=== PATIENT | male | born 1980 | race Hispanic/Latino ===

== ENCOUNTER 2018-01-17 21:46 | Emergency (ER) | payer BC, OTHER ==
[2018-01-17] MEDS ORDERED: traMADol HCl 50 MG TAB ONE (22:03)
[2018-01-17] MEDS ORDERED: Sulfameth/Trimethoprim DS 800-160mg TAB ONE (22:04)
== END 2018-01-17 22:25 | disposition home or self-care (01) ==
LOC: SCSER 21:46
DX: L02.811 Cutaneous abscess of head [any part, except face] (principal); J45.909 Unspecified asthma, uncomplicated
CPT/HCPCS: 69000

== ENCOUNTER 2019-05-22 21:12 | Inpatient (IN) | payer BC ==
[~2019-05-22 21:12] MED LIST: ISOVUE-370 76%-LOCM 1 ML ONE
--- NOTE | 2019-05-22 21:47 | RAD ---
EXAM: Single view of the chest HISTORY: Chest pain COMPARISON: 01/22/2009 FINDINGS: Single view of the chest shows a normal sized cardiomediastinal silhouette. There is no carole dence of consolidation, mass, or pleural effusion. The bones are unremarkable. IMPRESSION: No evidence of acute cardiopulmonary disease
[2019-05-22 22:33] LABS: Hemoglobin 15.3 g/dL (14.0-18.0); Lymphocytes 8 % (21-51); MDiff Complete? YES; Mean Corpuscular HGB CONC 34.4 g/dL (32.0-36.0); Mean Corpuscular Hemoglobin 32.5 pg (27.0-31.0); Mean Corpuscular Volume 94.5 fL (78.0-98.0); Mean Platelet Volume 10.3 fL (7.4-10.4); Monocytes 2 % (0-10); Neutrophil 90 % (42-75); Platelet Count 273 thou/uL (130-400); Platelet Morphology Comment Appears Adequate; RBC Distribution Width 12.3 % (11.5-14.5)
[2019-05-22 22:42] LABS: White Blood Cell (WBC) Count 9.9 thou/uL (4.8-10.8)
[2019-05-22] MEDS ORDERED: Morphine 4 MG/ML VIAL ONE (23:00)
[2019-05-22] MEDS ORDERED: Ketorolac Tromethamine 30 MG/ML VIAL ONE (23:02)
[2019-05-22] MEDS ORDERED: Ondansetron PF 4 MG/2 ML Vial ONE (23:11)
[2019-05-23] MEDS ORDERED: Morphine 4 MG/ML VIAL ONE ×4 (00:13→08:01)
[2019-05-23] MEDS ORDERED: Morphine 2 MG/ML SYRINGE ONE (01:56)
[2019-05-23] MEDS ORDERED: Acetaminophen 325 MG TAB PO PRN (04:47)
[2019-05-23] MEDS ORDERED: Ondansetron ODT 4 MG TAB SL PRN (04:47)
[2019-05-23] MEDS ORDERED: Ondansetron PF 4 MG/2 ML Vial IVP PRN (04:47)
[2019-05-23] MEDS: Morphine 2 MG/ML SYRINGE SLOW IVP PRN ×2 (05:08→08:04)
[2019-05-23] MEDS: Sodium Chloride 0.45% 1,000 ML IV SCH ×4 (05:09→15:31)
[2019-05-23] MEDS ORDERED: Ondansetron PF 4 MG/2 ML Vial ONE (07:03)
--- NOTE | 2019-05-23 07:58 | CT ---
PRELIMINARY REPORT/[facility]/EMERGENCY AFTER HOURS PROCEDURE: Addendum created by Jared Jeffers MD on 05/23/2019 2:40 AM Central Time ([place] & [place]) THIS REPORT CONTAINS FINDINGS THAT MAY BE CRITICAL TO PATIENT CARE. The findings were verbally communicated via telephone conference with Dr Pemberton at 2:31 AM CDT on 05/23/2019. The findings were acknowledged and understood. Initial Report created on 05/23/2019 2:39 AM Central Time ([place] & [place]) EXAM: CT Abdomen and Pelvis With Contrast EXAM DATE/TIME: 05/23/2019 12:34 AM CLINICAL HISTORY: 38 years old, male; Abdominal pain; Patient HX: Er 1. PT CO epigastric and cp. TECHNIQUE: Imaging protocol: Axial computed tomography images of the abdomen and pelvis with intravenous contrast. COMPARISON: No relevant prior studies available. FINDINGS: Liver: No acute findings. Fatty liver. No mass. Gallbladder and bile ducts: Prior cholecystectomy. No calcified stones. No biliary dilation. Pancreas: Possible mild fat stranding/edema in the pancreaticoduodenal region. No mass. No ductal dilation. No mass. No ductal dilation. Spleen: No acute findings. No mass. Adrenals: No acute findings. No mass. Kidneys and ureters: Multiple left renal calculi, largest in the lower pole. Left upper pole caliecta sis. Left hydroureter. No evidence of ureteral calculi. Left renal lower pole 3 cm increased attenuation mass. Small right renal calculi. No right hydronephrosis. Stomach and bowel: No obstruction. Appendix: No evidence of appendicitis. Intraperitoneal space: No free air. No significant fluid collection. Vasculature: No acute findings. No abdominal aortic aneurysm. Lymph nodes: No significant lymphadenopathy. Bladder: No acute findings. No evidence of bladder calculi. Reproductive: No acute findings. Bones/joints: No acute fracture. Soft tissues: No acute findings. IMPRESSION: Possible mild stranding/edema in the pancreaticoduodenal region which could be inflammatory; recommend clinical/lab correlation. Left renal suspicious mass; recommend further evaluation with dedicated renal protocol imaging. Bilateral nonobstructing nephrolithiasis. Left hydroureter and caliectasis. Thank you for allowing us to participate in the care of your patient. Dictated and Authenticated by: Jared Jeffers MD 05/23/2019 2:39 AM Central Time ([place] & [place]) FINAL REPORT CT Abdomen Pelvis W Con History: Abdominal pain Comparison: None. Findings: Diffuse hepatic steatosis. Multiple large calculi within the dilated inferior left renal ca lyx. Complex mass inferior pole left kidney. Retained bilateral renal lobulation. Multiple dilated calyces throughout the left renal collect ing system. Scarring superior pole left kidney. Duplicated left renal collecting system with dilatation of the superior moiety ureter at the level of the pelvic brim. Impression: 1. Duplicated left renal collecting system with scarring of the superior moiety and ureteral dilatati on at the level of the pelvic brim. Scarring likely sequela of chronic obstruction. 2. Numerous calculi throughout the inferior left renal collecting system as well as punctate calculi in the left interpolar and right inferior renal collecting system. 3. Mild inflammatory stranding at the pancreatic duodenal groove suggesting groove pancreatitis. 4. Possible mass left kidney. Dedicated renal protocol MRI recommended. Transcribed Date/Time: 05/23/2019 8:36 AM
--- NOTE | 2019-05-23 08:39 | CT ---
PRELIMINARY REPORT/[facility]/EMERGENCY AFTER HOURS PROCEDURE: EXAM: CT Angiography Chest With Contrast EXAM DATE/TIME: 05/23/2019 12:34 AM CLINICAL HISTORY: 38 years old, male; Patient HX: Eval for possible pe; Er 1. PT CO epigastric and chest pain. TECHNIQUE: Imaging protocol: Axial computed tomographic angiography images of the chest with intravenous contras t using CT angiography protocol. 3D rendering: MIP reconstructed images were created and reviewed. COMPARISON: No relevant prior studies available. FINDINGS: Pulmonary arteries: No acute findings. No evidence of pulmonary embolism. Aorta: No acute findings. No aortic aneurysm or dissection. Lungs: No acute findings. No consolidation. No masses. Pleural space: No pneumothorax. No pleural effusion. Heart: No cardiomegaly. No pericardial effusion. Lymph nodes: No significant adenopathy. Bones/joints: No acute fracture. Soft tissues: No acute findings. IMPRESSION: No acute findings. Thank you for allowing us to participate in the care of your patient. Dictated and Authenticated by: Jared Jeffers MD 05/23/2019 2:21 AM Central Time ([place] & [place]) FINAL REPORT CT ANGIOGRAM CHEST WITH 3D RENDERING: EMERGENT AFTER HOURS EXAM: DATE: 12:36 a.m. TIME: 05/23/2019. No convincing CT evidence for acute pulmonary embolism. Hepatomegaly with marked fatty change. This report is in agreement with the preliminary report. POS: [facility]
[2019-05-23] MEDS ORDERED: HumaLOG 300 UNITS/3 ML VIAL SC PRN ×2 (10:03)
[2019-05-23] MEDS ORDERED: Guaifenesin DM 100-10/5 ML UDCUP PO PRN (10:03)
[2019-05-23] MEDS ORDERED: Dextrose 5% in Water 1,000 ML IV PRN (10:03)
[2019-05-23] MEDS ORDERED: Morphine 4 MG/ML VIAL SLOW IVP PRN (10:03)
[2019-05-23] MEDS ORDERED: Senokot S 8.6-50 MG TAB PO PRN (10:03)
[2019-05-23] MEDS ORDERED: Dextrose 50% Abboject 50 ML SYRINGE SLOW IVP PRN (10:03)
[2019-05-23] MEDS ORDERED: rOPINIRole HCl 1 MG TAB PO PRN (10:03)
[2019-05-23] MEDS ORDERED: Bisacodyl 10 MG SUPP PR PRN (10:03)
[2019-05-23] MEDS ORDERED: Sodium Chloride 0.45% 1,000 ML IV SCH ×2 (10:15→16:30)
[2019-05-23] MEDS: Ketorolac Tromethamine 30 MG/ML VIAL IVP PRN ×2 (11:10→18:03)
[2019-05-23] MEDS: Ondansetron PF 4 MG/2 ML Vial IVP PRN ×2 (11:16→22:22)
--- NOTE | 2019-05-23 14:18 | HP ---
REASON FOR ADMISSION: Acute pancreatitis. HISTORY OF PRESENTING ILLNESS: The patient gives history of left upper quadrant pain which started on Wednesday morning. This was radiating up into his chest. The pain was constant pain around 5 to 6/10 in intensity. No nausea or vomiting. The patient in fact states he ate a lot of pasta yesterday. He also admits to drinking at least 24 beer cans on each day of the weekend. No complaints of prior abdominal pain in the past. No complaints of palpitations, PND, or orthopnea. PAST MEDICAL AND SURGICAL HISTORY: Diabetes mellitus type 2, hypertension, history of cholecystectomy, prior history of lithotripsy done when he was 20 years of age and was told that he has chronic changes in his kidney. He does not remember his urologist. CURRENT MEDICATIONS: 1. Metformin 1000 mg extended release twice daily. 2. Glipizide extended release 5 mg daily. 3. Losartan 50 mg daily. ALLERGIES: NO KNOWN DRUG ALLERGIES. PERSONAL HISTORY: Drinks 24 cans of beer on the weekends. Does not abuse drugs or smoke. FAMILY HISTORY: Mother has history of heart failure, hypertension, and diabetes. Father had history of PE. CODE STATUS: Full. REVIEW OF SYSTEMS: CONSTITUTIONAL: Negative for weight loss or gain, ability to conduct usual activities. SKIN: Negative for rash, itching. EYES: Negative for double vision, pain. ENT/MOUTH: Negative for nose bleeding, neck stiffness, pain, tenderness. CARDIOVASCULAR: Negative for palpitations, dyspnea on exertion, orthopnea. RESPIRATORY: Negative for shortness of breath, wheezing, cough, hemoptysis, fever or night sweats. GASTROINTESTINAL: Negative for poor appetite, abdominal pain, heartburn, nausea , vomiting, constipation, or diarrhea. GENITOURINARY: Negative for urgency, frequency, dysuria, nocturia. MUSCULOSKELETAL: Negative for pain, swelling. NEUROLOGIC/PSYCHIATRIC: Negative for anxiety, depression. ALLERGY/IMMUNOLOGIC: Negative for skin rash, bleeding tendency. PHYSICAL EXAMINATION: GENERAL: The patient is a 38-year-old male, who is currently not in any acute distress. VITAL SIGNS: Blood pressure 136/86, pulse 90 per minute, respiratory rate 16 per minute, temperature 99.4 degrees Fahrenheit, and saturating 94% on room air. NECK: Supple. No elevated JVD. HEENT: Eyes; extraocular muscles intact. Pupils reacting to light. Oral cavity, mucous membranes are dry. No exudates or congestion. CARDIOVASCULAR: S1 and S2 heard, regular rhythm. RESPIRATORY: Air entry 1+ bilateral. No rales or rhonchi. ABDOMEN: There is tenderness in the left upper quadrant. No rigidity or guarding. Bowel sounds are heard. EXTREMITIES: No peripheral edema or calf tenderness. VASCULAR SYSTEM: Peripheral pulses 2+ bilateral. No ischemic ulcerations or gangrene. CENTRAL NERVOUS SYSTEM: No gross focal deficits noted. The patient is alert, awake, oriented well. PSYCHIATRIC: The patient's mood is euthymic. No hallucinations or delusions. PROCEDURES DONE: Chest x-ray done shows no acute cardiopulmonary process. CT angio chest done shows no acute findings. No evidence of PE. CT of the abdomen and pelvis with contrast done shows mild stranding/edema of the pancreaticoduodenal region. Left renal suspicious mass, bilateral nonobstructing nephrolithiasis, left hydroureter and caliectasis. H and H 15 and 44, platelet count 273, white count of 9.9 with 90% neutrophils. Lipase is 229. His comprehensive metabolic panel is pending at present. It is unclear this blood work was drawn at 11:40 p.m. yesterday and it is still not resulted. We will order another comprehensive metabolic panel stat. CLINICAL IMPRESSION AND PLAN: The patient will be admitted to medical floor for acute pancreatitis, likely alcohol induced. He also has findings of left hydroureter with prior history of stent and lithotripsy when he was 20 years of age. He was also told that one of his kidneys is enlarged and will be so, but it is unclear the size is same or bigger and there is also suspicion for a mass in the left kidney. He will be on half normal saline at 150 mL per hour, morphine, Toradol p.r.n. for pain. We will obtain a triglyceride level stat. We will continue his glyburide as before. He will be on clear liquid diet for now. We will obtain consultation with Dr. Mando Vega for gastroenterology and Dr. Wade for Urology. Addendum: patients triglyceride levels are around 2500, d/w and , will move patient to ccu and start him on iv insulin at 3u/hr regular insulin with d5w buffer and 1/2 ns for volume resuscitation. If his fingerstick glucose goes beyond 350mg/dl then his d5w drip will be turned off and 1/2 ns drip volume will be increased. Add fish oil, tricor and crestor with one doses today. Job ID: [id number] [facility]
[2019-05-23 14:39] LABS: Carbon Dioxide 22 mmol/L (22-29); Chloride 109 mmol/L (98-107); Potassium 4.4 mmol/L (3.5-5.1); Sodium 142 mmol/L (136-145)
[2019-05-23 14:40] LABS: Anion Gap 15 mmol/L (10-20); BUN (Urea Nitrogen) 11 mg/dL (8.9-20.6); Calc. Creatinine Clearance 228 mL/min (70-130); Estimated GFR-MDRD Greater than 90; Glucose 262 mg/dL (70-105)
[2019-05-23 14:42] LABS: AST (SGOT) 38 U/L (5-34); Albumin 3.6 g/dL (3.5-5.0); Alkaline Phosphatase 107 U/L (40-150); Bilirubin, Total 0.5 mg/dL (0.2-1.2); Calcium 9.5 mg/dL (7.8-10.44); Globulin 2.5 g/dL (2.4-3.5); Protein, Total 6.1 g/dL (6.0-8.3)
[2019-05-23 14:43] LABS: ALT (SGPT) 80 U/L (8-55); CK (CPK) 29 U/L (30-200); Triglycerides 2512 mg/dL (Less than 150)
[2019-05-23] MEDS: HYDROcodone/Acetaminophen 5/325 mg Tablet PO PRN ×2 (15:27→21:40)
--- NOTE | 2019-05-23 16:20 | CON ---
DATE OF CONSULTATION: 05/23/2019 HISTORY OF PRESENT ILLNESS: This is a 38-year-old male whom I have been asked to see today, the May. I am seeing in room 245 on the Observation ca, but he is going to be transferred to a room, where he will be an inpatient. He was admitted with abdominal pain, epigastric and left upper quadrant pain, and found to have elevated lipase. CAT scan shows some inflammation of the pancreas and he is being treated for pancreatitis. He has had his gallbladder removed a few years ago and it was felt that it may be alcoholic pancreatitis. Currently, his pulse is 96, O2 sats 94%, blood pressure is normal. He is afebrile. His white blood cell count is 9.9, his hemoglobin is 15.3, and his lipase is 229 this morning. I actually cannot find on him a chem 7. There is no creatinine on him recently. I have been asked to see him because of kidney stones. He has a long history of kidney stones. He had a right percutaneous lithotripsy procedure by one of the [facility] physicians 18 or 19 years ago in this hospital. He has not seen anyone back since then. He passes occasionally small stones, but he has never had enough pain, where he decided to go to the ER or seek out help for these. The CAT scan that he had done for his pancreatitis, I have reviewed. He has bilateral renal stones. He has some left upper pole caliectasis and some dilatation of the left ureter. There is nothing to suggest any ureteral calculi on the CAT scan or any bladder calculi. He has more stones in the left kidney than on the right. I have no urinalysis on him. On talking to him, he has had no blood in his urine. He has had no dysuria. No urinary tract infections. No voiding issues. Surgically, he has had percutaneous stone procedures. He has had a cholecystectomy. PAST MEDICAL HISTORY: Includes hypertension, diabetes. Also, I think, he has elevated cholesterol, looks like he is on Lipitor and glyburide, and I am not sure what he is actually on for his blood pressure. Currently, his blood pressure is fine. He is also currently getting some pain medication for his pancreatitis pain. SOCIAL HISTORY: He does smoke. He does drink. He is single, but has a girlfriend. PHYSICAL EXAMINATION: His exam, he does not have flank tenderness. He has abdominal tenderness in the left upper quadrant and epigastric region. There is no rebound or guarding currently. The belly is soft. He is not circumcised. There is no phimosis, no lesion. The testicles are both descended without mass or tenderness. IMPRESSION: Bilateral stones with some chronic changes in the kidneys as these may even be related to his prior large stone that required surgery. He has nothing to suggest he has ureteral colic going on. He does have, on his CAT scan, a left-sided renal mass that does need further evaluation. This was done just with contrast and it is really hard to tell, if this is solid or cystic mass. I am not sure that just a better CT scan would not give us that answer. Radiology has recommended renal protocol MRI. I am not sure what the benefit that is going to be in this case. I do not think we should immediately do this x-ray. He may end up needing a followup CAT scan related to pancreatitis and we could perhaps do that with and without some contrast and make a better judgment as to what this is. In any event, it is not something that is pressing, but it is something that just needs to be evaluated as the time goes on either as inpatient or outpatient. Job ID: [id number]
[2019-05-23 16:30] LABS: Bacteria/HPF None Seen HPF (None Seen); Hyaline Casts/LPF 0-3 HYALINE CAST LPF (0-3 Hyaline); RBC/HPF 0-3 HPF (0-3); Squamous Epithelial 0-3 HPF (0-3); WBC/HPF 0-3 HPF (0-3)
[2019-05-23] MEDS ORDERED: Dextrose 5% in Water 1,000 ML IV SCH (16:30)
[2019-05-23] MEDS ORDERED: Dextrose 5 %-0.45 % NaCl 1,000 ML IV SCH (16:45)
[2019-05-23] MEDS ORDERED: Fenofibrate Nanocrystallized 145 MG TAB PO SCH (17:00)
[2019-05-23] MEDS ORDERED: HumaLOG 300 UNITS/3 ML VIAL SC SCH (17:15)
[2019-05-23] MEDS: HUMULIN R 100 UNITS in Sodium Chloride 0.9% 100 ML IVPB SCH (18:07)
[2019-05-23] MEDS: Sodium Chloride 0.9% 1,000 ML IV SCH (18:44)
[2019-05-23] MEDS: Dextrose 5 %-0.45 % NaCl 1,000 ML IV SCH (18:48)
[2019-05-23] MEDS: Heparin 5,000 UNITS/ML VIAL SC SCH (20:35)
[2019-05-23] MEDS: Fish Oil 1,000 MG CAP PO SCH (20:35)
[2019-05-23] MEDS: Famotidine 20 MG TAB PO SCH (20:35)
[2019-05-23] MEDS: Rosuvastatin 20 MG TAB PO SCH (20:35)
[2019-05-23] MEDS ORDERED: Atorvastatin Calcium 10 MG TAB PO SCH (21:00)
--- NOTE | 2019-05-23 23:18 | CON ---
DATE OF CONSULTATION: 05/23/2019 SERVICE: Pulmonary Medicine. REASON FOR CONSULT: The patient is moving to the ICU. HISTORY OF PRESENT ILLNESS: The patient is a 38-year-old male with past medical history significant for alcohol abuse. He presented to the hospital with epigastric discomfort. Ultimately, he was diagnosed with pancreatitis. During the workup for this, it was clear that he had very elevated triglyceride levels to 2500. This is the suspected source. He is being moved to the ICU to initiate an insulin drip and heparin to expeditiously drop his triglyceride level. He denies any fevers or chills. Otherwise, he is in his usual state of health and has no specific complaints at this point. He is not having any difficulty with breathing. He is not coughing. He denies having any chest discomfort or palpitations. He hs not have any diarrhea, constipation. PAST MEDICAL HISTORY: 1. Type 2 diabetes mellitus. 2. Hypertension. 3. Dyslipidemia. 4. Nephrolithiasis. PAST SURGICAL HISTORY: 1. Cholecystectomy. 2. History of lithotripsy. SOCIAL HISTORY: He drinks 24 cans of beer on most weekends. He denies any tobacco or illicit drug use otherwise. He has no exposure to chemicals, dust, asbestos , or tuberculosis. FAMILY HISTORY: Noncontributory. ALLERGIES: NO KNOWN DRUG ALLERGIES. MEDICATIONS: List of the patient's inpatient medications were reviewed. No specific updates were made at this time. REVIEW OF SYSTEMS: General, head, ears, eyes, nose, throat, cardiovascular, respiratory, GI, , musculoskeletal, neurologic, and skin is negative except as mentioned is the HPI. PHYSICAL EXAMINATION: VITAL SIGNS: Afebrile, pulse 90, blood pressure 122/67, respirations 16, saturation 95% on room air. GENERAL: The patient is awake and alert, in no apparent distress. LUNGS: Decent air entry. Minimal dependent crackles are present. There is no prolonged expiratory phase or wheezing present. HEART: Normal rate, regular. ABDOMEN: Soft. Tender to palpation, particularly in the epigastric region. There is no rebound or guarding present. MUSCULOSKELETAL: No cyanosis or clubbing. There is trace pitting in the bilateral lower extremities. NEUROLOGIC: Grossly nonfocal. LABORATORY DATA: WBC 9.9, hemoglobin 15.3, platelets 273,000, neutrophil count is 90%. D-dimer 0.74. Basic metabolic profile is unremarkable. AST and ALT are marginally elevated. Alkaline phosphatase 107. Triglycerides 215, lipase 229. IMAGING DATA: 1. CT of the abdomen and pelvis demonstrates findings consistent with pancreatitis. There is also a left renal mass identified. Bilateral nephrolithiasis is noted. 2. CTA of the chest demonstrates no evidence of pneumonia. There is no pulmonary embolism. Hepatomegaly is present with marked fatty changes. 3. Chest x-ray demonstrates no acute cardiopulmonary abnormality. ASSESSMENT: 1. Acute pancreatitis. 2. Hypertriglyceridemia. 3. Type 2 diabetes mellitus. 4. Left renal mass. 5. Nephrolithiasis. 6. Alcohol abuse. DISCUSSION AND PLAN: The patient is being moved to the ICU to initiate an insulin drip, so we expeditiously drop his triglyceride level. I will also put him on subcu heparin 3 times daily. If his triglycerides do not fall into a less toxic range , the patient will likely require transition to an outside hospital where he can pursue plasmapheresis of the lipid. Pulmonary/Critical Care will continue to follow along. 70 minutes have been devoted to this patient in various activities. I personally reviewed all imaging studies and laboratory data noted within this document. For fifty percent of this time, I was interacting with the patient at the bedside or coordinating care with the care team. For the remainder of the time I was immediately available to the patient in the hospital unit. Job ID: [id number] [facility]
--- NOTE | 2019-05-24 02:02 | CON ---
DATE OF CONSULTATION: 05/23/2019 REASON FOR CONSULTATION: Pancreatitis. CONSULTING PHYSICIAN: Masood Michaels MD. HISTORY OF PRESENT ILLNESS: The patient is a 38-year-old male with past medical history of diabetes and hypertension, presenting with acute onset of midepigastric abdominal pain. He states that for the last 2 days, he had acute onset of midepigastric abdominal pain that also extended into the left upper quadrant. It would radiate to the left chest. It was characterized as a squeezing/twisting type pain, was constant with waxing/waning severity, and reached a severity of 9/10. This pain was worse with increased physical activity, but did not bear any relation to ingestion of either solid or liquid foods (although the patient was not very hungry during this time.) The pain was better only with the pain medications that have been administered during this hospitalization. Associated symptoms included increased shortness of breath at rest as well as dyspnea on exertion. However, he denies any nausea, vomiting, fevers, chills, hematemesis, melena, hematochezia, diarrhea, or constipation. With increasing abdominal pain, it prompted him to seek healthcare assistance and while being evaluated in the ER, he was noted to have an elevated lipase and admitted to the hospital for further evaluation for acute pancreatitis. However, also noted was an elevated triglyceride level of approximately 2500. He is being further evaluated for this particular condition as well. Of note, the patient drinks approximately 24 beers on Wednesday and another 24 beers on Sundays on most weekends with the recent onset of pain this last Wednesday after increased alcohol intake. PAST MEDICAL HISTORY: As per HPI. PAST SURGICAL HISTORY: Cholecystectomy, nephrolithiasis, lithotripsy. FAMILY HISTORY: Denies any GI malignancies. OUTPATIENT MEDICATIONS: Reviewed. ALLERGIES: NO KNOWN DRUG ALLERGIES. PHYSICAL EXAMINATION: VITAL SIGNS: Temperature 98, pulse 90, blood pressure 122/67, respiratory rate 16, saturating 95% on room air. GENERAL: The patient was lying in bed, in no acute distress. Alert and oriented x4. HEENT: NECK: Supple. Normocephalic, atraumatic. No scleral icterus or JVD noted. CARDIOVASCULAR: Regular rate and rhythm with no discernible murmurs, gallops, or rubs. RESPIRATORY: Clear to auscultation bilaterally with no discernible wheezes or rales. ABDOMEN: Normoactive bowel sounds. Soft, nondistended. Tenderness to palpation in the midepigastric and left upper quadrant. EXTREMITIES: No cyanosis, clubbing, or edema. LABORATORY DATA: CBC with a white blood cell count of 9.9, hemoglobin 15.3, hematocrit 44.4, glucose 273. Chemistry with a sodium of 142, potassium 4.4, chloride 109, CO2 of 22, BUN 11, creatinine 0.78, glucose 262. AST 38, ALT 80, alkaline phosphatase 107, total bilirubin 0.5, lipase 229, triglycerides 2512. IMAGING DATA: CT of the abdomen and pelvis obtained on May 23, 2019, showed diffuse fatty liver as well as surgical change consistent with cholecystectomy. There was possible mild fat stranding/edema in the pancreatic or duodenal region, but also seen were multiple left renal calculi. ASSESSMENT AND PLAN: The patient is a 38-year-old male with past medical history of hypertension and diabetes, presenting with acute onset pancreatitis. Acute uncomplicated pancreatitis. The patient is presenting with acute onset increased midepigastric abdominal pain characterized as a squeezing/twisting type sensation, is constant and reaching a severity of 9/10. Upon evaluation here in the [facility] ER, he was noted to have an elevated lipase consistent with acute pancreatitis. At this time, the more likely etiology for his acute pancreatitis would be his significant alcohol use with binge drinking on the weekends. However, he also does have significantly elevated triglycerides, which also could induce pancreatitis and for which the patient has known he has had elevated triglycerides for at least the last couple of months. At this point in time, he does not have any imaging findings consistent with pancreatic necrosis or pseudocyst formation nor does he have any evidence of end-organ dysfunction that might indicate more severe pancreatitis. RECOMMENDATIONS: 1. We would continue patient on n.p.o. status given his diagnosis of pancreatitis and consider increasing his diet to clear liquid diet tomorrow. 2. We will continue IV fluids at approximately 200 mL/hour for a total duration of 68 hours then decrease to 150 mL/hour. 3. We would transfer patient to an ICU type setting for placement on an insulin drip. Regarding his hypertriglyceridemia, which could further exacerbate his pancreatitis, we will defer to primary and critical care specialists in terms of insulin drip protocol. 4. Pain control per primary team. 5. We will consider placing patient on anti-triglyceride medication once his triglycerides are less than 500. 6. We will continue to follow. Please call with any questions. Job ID: [id number]
[2019-05-24] MEDS: Sodium Chloride 0.9% 1,000 ML IV SCH ×2 (05:05→11:59)
[2019-05-24] MEDS: Dextrose 5 %-0.45 % NaCl 1,000 ML IV SCH ×2 (05:05→11:59)
[2019-05-24] MEDS: Ketorolac Tromethamine 30 MG/ML VIAL IVP PRN ×3 (06:12→21:33)
[2019-05-24 06:40] VITALS: BMI 43.3
[2019-05-24 06:44] LABS: #Eosinphils 0.2 thou/uL (0.0-0.7); #Lymphocytes 1.8 thou/uL (1.20-3.40); #Monocytes 0.6 thou/uL (0.11-0.59); #Neutrophils 3.6 thou/uL (1.40-6.50); %Basophils 0.6 % (0.0-1.0); %Eosinophils 3.4 % (0.0-10.0); %Lymphocytes 28.3 % (21.0-51.0); %Monocytes 9.1 % (0.0-10.0); %Neutrophils 58.6 % (42.0-75.0); Hemoglobin 12.5 g/dL (14.0-18.0); Mean Corpuscular Hemoglobin 34.3 pg (27.0-31.0); Mean Corpuscular Volume 95.2 fL (78.0-98.0); Mean Platelet Volume 7.3 fL (7.4-10.4); Platelet Count 177 thou/uL (130-400); RBC Distribution Width 11.2 % (11.5-14.5); Red Blood Cell (RBC) Count 3.65 mill/uL (4.70-6.10); White Blood Cell (WBC) Count 6.2 thou/uL (4.8-10.8)
[2019-05-24 07:02] LABS: ALT (SGPT) 70 U/L (8-55); AST (SGOT) 32 U/L (5-34); Albumin 3.4 g/dL (3.5-5.0); Alkaline Phosphatase 92 U/L (40-150); Anion Gap 15 mmol/L (10-20); BUN (Urea Nitrogen) 8 mg/dL (8.9-20.6); Bilirubin, Total 0.5 mg/dL (0.2-1.2); Calc. Creatinine Clearance 248 mL/min (70-130); Calcium 8.5 mg/dL (7.8-10.44); Carbon Dioxide 19 mmol/L (22-29); Chloride 102 mmol/L (98-107); Estimated GFR-MDRD Greater than 90; Globulin 3.4 g/dL (2.4-3.5); Glucose 167 mg/dL (70-105); Potassium 3.6 mmol/L (3.5-5.1); Protein, Total 6.8 g/dL (6.0-8.3); Sodium 132 mmol/L (136-145)
[2019-05-24] MEDS: Heparin 5,000 UNITS/ML VIAL SC SCH ×3 (07:48→20:58)
[2019-05-24] MEDS: Famotidine 20 MG TAB PO SCH ×2 (07:48→20:56)
[2019-05-24] MEDS: Fenofibrate Nanocrystallized 145 MG TAB PO SCH (07:48)
[2019-05-24] MEDS: HUMULIN R 100 UNITS in Sodium Chloride 0.9% 100 ML IVPB SCH (07:54)
[2019-05-24] MEDS: HYDROcodone/Acetaminophen 5/325 mg Tablet PO PRN ×2 (08:29→16:08)
[2019-05-24] MEDS ORDERED: glyBURIDE 2.5 MG TAB PO SCH (09:00)
[2019-05-24] MEDS ORDERED: Enoxaparin Sodium 40 MG/0.4 ML SYRINGE SC SCH (09:00)
[2019-05-24 09:20] LABS: Glucose 149 mg/dL (70-105)
[2019-05-24] MEDS: Dextrose 5 % And 0.9 % NaCl 1,000 ML IV SCH ×2 (10:00→13:39)
--- NOTE | 2019-05-24 12:57 | PRG ---
DATE OF SERVICE: 05/24/2019 SERVICE: Pulmonary Medicine. INTERVAL HISTORY: The patient is much improved. His abdominal discomfort has improved. He denies any current fevers or chills. His appetite is actually picked up a little bit and he has hunger pain. Otherwise, he denies having any shortness of breath, nausea, or vomiting. While he was sleeping, he had witnessed obstructive events. PHYSICAL EXAMINATION: VITAL SIGNS: Afebrile, pulse 79, blood pressure 148/95, respirations 13, saturation 94% on 2 L nasal cannula. GENERAL: The patient is awake and alert, in no apparent distress. LUNGS: Decent air entry. Minimal dependent crackles are present. No prolonged expiratory phase or wheezing is appreciated. HEART: Normal rate, regular. ABDOMEN: Soft, nontender, and nondistended. Bowel sounds are positive. MUSCULOSKELETAL: No cyanosis or clubbing. There is no pitting in the bilateral lower extremities. NEUROLOGIC: Grossly nonfocal. LABORATORY DATA: WBC 6.2, hemoglobin 12.5, and platelets 177,000. D-dimer is 0.74. Sodium 132 and downtrending, bicarb 19, anion gap 15, which is stable. Liver function studies are unremarkable. Triglyceride has precipitously fallen to 1400. Glucose ranges from 158 to 173. Urinalysis is unremarkable. ASSESSMENT: 1. Acute pancreatitis. 2. Hypertriglyceridemia. 3. Alcohol abuse. 4. Type 2 diabetes mellitus. 5. Left renal mass. 6. Nephrolithiasis. 7. Obstructive sleep apnea, suspected. DISCUSSION AND PLAN: We will continue IV hydration. I believe his acute inflammatory process is improving significantly. We are going to give the patient a clear liquid diet. He can be advanced tomorrow if he is tolerating it. We will continue the insulin drip. It looks like his triglyceride level is below the toxic threshold that we typically see for acute pancreatitis. At this point, the patient has no evidence of alcohol withdrawal. We will keep a watch for that. He will need to remain in the ICU or IMCU until we can transition off the insulin drip. Job ID: [id number] MTDD
--- NOTE | 2019-05-24 13:54 | PDOC.PN ---
- Subjective Encounter Start Date: 05/24/19 Encounter Start Time: 11:25 Subjective: abd pain is better, no sob or nausea -: is passing flatus - Objective Resuscitation Status - Order Detail: 05/23/19 09:57 Resuscitation Status Routine Resuscitation Status: FULL: Full Resuscitation MAR Reviewed: Yes Vital Signs & Weight: Vital Signs (12 hours) Temp Pulse Ox 05/24/19 12:00 97.7 F 05/24/19 08:00 97.8 F 05/24/19 07:57 93 L 05/24/19 04:00 98.6 F Weight Weight 276 lb 10.882 oz Most Recent Monitor Data Heart Rate from ECG 81 NIBP 147/99 NIBP BP-Mean 115 Respiration from ECG 27 SpO2 92 I&O: 05/23/19 05/24/19 05/25/19 06:59 06:59 06:59 Intake Total 4320 346 Output Total 875 1150 Balance 3445 -804 Result Diagrams: 05/24/19 06:14 05/24/19 08:34 Additional Labs: Accuchecks 05/24/19 05/24/19 05/24/19 12:17 10:17 06:14 POC Glucose 154 H 159 H 173 H 05/24/19 05/24/19 05/24/19 05:10 04:09 03:06 POC Glucose 158 H 141 H 150 H 05/24/19 05/24/19 05/24/19 02:09 01:10 00:11 POC Glucose 148 H 151 H 151 H 05/23/19 05/23/19 05/23/19 23:05 22:06 21:05 POC Glucose 172 H 169 H 168 H Phys Exam - Physical Examination HEENT: PERRLA, sclera anicteric Neck: no JVD, supple Respiratory: no wheezing, no rales Cardiovascular: RRR, no significant murmur Gastrointestinal: soft, no distention, positive bowel sounds Musculoskeletal: no edema, pulses present Neurological: non-focal, moves all 4 limbs Psychiatric: normal affect, A&O x 3 Dx/Plan (1) Acute pancreatitis Code(s): K85.90 - ACUTE PANCREATITIS WITHOUT NECROSIS OR INFECTION, UNSP Status: Acute Comment: sec to alc use and hypertriglyceredemia (2) Hypertriglyceridemia Code(s): E78.1 - PURE HYPERGLYCERIDEMIA Status: Acute (3) Morbid obesity Code(s): E66.01 - MORBID (SEVERE) OBESITY DUE TO EXCESS CALORIES Status: Chronic (4) DM type 2 (diabetes mellitus, type 2) Status: Chronic Qualifiers: Diabetes mellitus rn long term care insulin use: without residential use Diabetes mellitus complication status: without complication Qualified Code(s): E11.9 - Type 2 diabetes mellitus without complications (5) KEON (obstructive sleep apnea) Code(s): G47.33 - OBSTRUCTIVE SLEEP APNEA (ADULT) (PEDIATRIC) Status: Suspected (6) Alcohol consumption binge drinking Code(s): F10.10 - ALCOHOL ABUSE, UNCOMPLICATED Status: Chronic - Plan this am triglyceride levels have come down to 1400 from 2500 -: is on insulin drip at 5u/hr, continue iv D5ns -: on tricor, crestor and fish oil -: hemostable -: is on clear liq diet, to amb as tolerated in room * . May dc iv insulin if ok with or will check triglyceride levels in am Review of Systems - Medications/Allergies Allergies/Adverse Reactions: Allergies Allergy/AdvReac Type Severity Reaction Status Date / Time No Known Drug Allergies Allergy Verified 05/23/19 10:39 Medications: Current Medications Acetaminophen (Tylenol) 650 mg PO Q4H PRN PRN Reason: Headache/Fever/Mild Pain (1-3) Hydrocodone Bitart/Acetaminophen ([place] 5/325) 1 tab PO Q4H PRN PRN Reason: Moderate Pain (4-6) Last Admin: 05/24/19 08:29 Dose: 1 tab Bisacodyl (Dulcolax) 10 mg [place] DAILYPRN PRN PRN Reason: Constipation Dextrose/Water (Dextrose 50%) 25 gm SLOW IVP PRN PRN PRN Reason: Hypoglycemia Famotidine (Pepcid) 20 mg PO BID [facility] Last Admin: 05/24/19 07:48 Dose: 20 mg Fenofibrate (Tricor) 145 mg PO DAILY [facility] Last Admin: 05/24/19 07:48 Dose: 145 mg Fish Oil (Fish Oil) 1,000 mg PO HS [facility] Last Admin: 05/23/19 20:35 Dose: 1,000 mg Glucagon (Glucagon) 1 mg IM PRN PRN PRN Reason: Hypoglycemia Guaifenesin/Dextromethorphan (Robitussin Dm) 15 ml PO Q4H PRN PRN Reason: Cough Heparin Sodium (Porcine) (Heparin) 5,000 units SC TID [facility] Last Admin: 05/24/19 07:48 Dose: 5,000 units Dextrose/Water (D5w) 1,000 mls @ 0 mls/hr IV .Q0M PRN PRN Reason: Hypoglycemia Insulin Human Regular 100 (units/ Sodium Chloride) 101 mls @ 5.05 mls/hr IVPB INF [facility]; Protocol Last Admin: 05/24/19 07:54 Dose: 101 mls Dextrose/Sodium Chloride (D5 0.9% Ns) 1,000 mls @ 150 mls/hr IV .Q6H40M [facility] Last Admin: 05/24/19 13:39 Dose: 1,000 mls Ketorolac Tromethamine (Toradol) 30 mg IVP Q6H PRN PRN Reason: Severe Pain (7-10) Stop: 05/28/19 10:04 Last Admin: 05/24/19 12:18 Dose: 30 mg Morphine Sulfate (Morphine) 4 mg SLOW IVP Q4H PRN PRN Reason: Severe Pain (7-10) Ondansetron HCl (Zofran) 4 mg IVP Q6H PRN PRN Reason: Nausea/Vomiting Last Admin: 05/23/19 22:22 Dose: 4 mg Ropinirole HCl (Requip) 1 mg PO HS PRN PRN Reason: Restlessness Rosuvastatin Calcium (Crestor) 20 mg PO HS [facility] Last Admin: 05/23/19 20:35 Dose: 20 mg Senna/Docusate Sodium (Senokot S) 2 tab PO BID PRN PRN Reason: Constipation
--- NOTE | 2019-05-24 16:03 | PRG ---
DATE OF SERVICE: This is a 38-year-old male, seen at [facility]. [place] is in [place] seen him today, 24 May 2019. His vital signs currently are stable. He is a little hypertensive, not tachycardic and afebrile. Yesterday, he had chemistries done that showed his creatinine to be 0.73. I had ordered a urinalysis that was done only as a micro, but it showed 0 to 3 red cells, 0 to 3 white cells, no bacteria. He is in the ICU because of his pancreatitis, although he is feeling better. I talked with him today about workup for the renal mass that was seen on the CAT scan. I think he just needs probably a better CT scan one without and then done with and then a delayed possibly to look at this area. I think the best way to handle this is probably just do it as an outpatient, let them get through the pancreatitis. I would get a visit set up from to see me on the 13 of June at 1:30 my office and I have talked with them where my office is. Next step from my standpoint will be to get better imaging to know what this lesion in the kidney is and then if it needs to be treated, treat it and then after that to look at stones that have reformed and decide whether he wishes to treat any of those or just watch them suppress the growth. This was discussed with him. He seems agreeable with it. So for this hospitalization, I would not further workup this renal mass. We will work it up after his pancreatitis has resolved. Job ID: [id number]
[2019-05-24] MEDS ORDERED: Sodium Chloride 154 MEQ in Dextrose 10% in Water 1,000 ML IV PRN (20:08)
[2019-05-24] MEDS: Fish Oil 1,000 MG CAP PO SCH (20:56)
[2019-05-24] MEDS: Rosuvastatin 20 MG TAB PO SCH (20:56)
[2019-05-24] MEDS: Ondansetron PF 4 MG/2 ML Vial IVP PRN (21:33)
[2019-05-25] MEDS: HUMULIN R 100 UNITS in Sodium Chloride 0.9% 100 ML IVPB SCH (00:29)
[2019-05-25] MEDS: HYDROcodone/Acetaminophen 5/325 mg Tablet PO PRN ×4 (01:36→19:06)
[2019-05-25] MEDS: Dextrose 5 % And 0.9 % NaCl 1,000 ML IV SCH ×4 (02:27→21:53)
--- NOTE | 2019-05-25 04:05 | PRG ---
DATE OF SERVICE: 05/24/2019 REASON FOR CONSULTATION: Acute uncomplicated pancreatitis. SUBJECTIVE: The patient was transferred to the [facility] yesterday for initiation of insulin drip in addition to IV fluid administration. Today, he states that he is feeling much better. He states that his appetite has improved and he was able to tolerate a clear liquid diet with no significant increases in his abdominal pain, although he does continue to have some mild midepigastric abdominal discomfort. Otherwise, he currently denies any nausea, vomiting, fevers, chills, hematemesis, melena, or hematochezia. OBJECTIVE: VITAL SIGNS: Temperature 97.1, pulse 77, blood pressure 149/85, respiratory rate 13, saturating 92% on room air. GENERAL: The patient was lying in bed, in no acute distress. Alert and oriented x4. CARDIOVASCULAR: Regular rate and rhythm. RESPIRATORY: Clear to auscultation bilaterally. ABDOMEN: Normoactive bowel sounds. Soft, nondistended, mild tenderness to palpation in the midepigastric and left upper quadrant. EXTREMITIES: No cyanosis, clubbing, or edema. LABORATORY DATA: CBC with a white blood cell count of 6.2, hemoglobin 12.5, hematocrit 34.7, and platelets 177. Chemistry; sodium of 132, potassium 3.6, chloride 102, CO2 of 19, BUN 8, creatinine 0.73, glucose 167, AST 32, ALT 70, alkaline phosphatase 92, total bilirubin 0.5, and triglycerides 1442. IMAGING DATA: No current GI imaging is available for review. ASSESSMENT AND PLAN: The patient is a 38-year-old male with past medical history of hypertension and diabetes, presenting with acute onset of uncomplicated pancreatitis. Acute uncomplicated pancreatitis. The patient initially presented with acute onset of increased midepigastric abdominal pain that had been present for approximately 2 days prior to admission. On admission, he was noted to have mild inflammatory changes surrounding the pancreas on CT in addition to an elevated lipase consistent with pancreatitis. However, given his history of significant alcohol use with binge drinking on the weekends and significant hypertriglyceridemia, the etiology of his pancreatitis remains unclear as both of these could contribute to this process. He is currently in the [facility] on an insulin drip as part of treatment for his hypertriglyceridemia and has been responding well to treatment with a significant decrease in his triglycerides on labs this morning. He has also been currently monitored for any signs of alcohol withdrawal, although given that his last ingestion of alcohol was this last weekend, the likelihood of alcohol withdrawal at this point as well. At this point in time, he does not have any imaging findings consistent with pancreatic necrosis or pseudocyst formation nor does he have any evidence of end-organ dysfunction on labs that might indicate more severe pancreatitis. He is currently responding well to resumption of oral intake and may benefit from advancing his diet. RECOMMENDATIONS: 1. We will continue clear liquid diet today and possibly advance his diet to either full liquid or low-fat diet tomorrow. 2. We will continue IV fluid administration but can decrease based on his elevated blood pressures observed later on today and in regard to possible renal mass that could prevent adequate excretion of free water. I would decrease his saline administration to 100 mL/h. 3. We will continue insulin drip per ICU protocol for pain control per primary team. 4. We would continue the patient on insulin drip until his triglycerides are less than 500. Then, we would consider discontinuation with only continuation of oral anticholesterol medications. We will continue to follow. Please call with any questions. Job ID: [id number]
[2019-05-25 08:20] LABS: Anion Gap 10 mmol/L (10-20); BUN (Urea Nitrogen) 6 mg/dL (8.9-20.6); Calc. Creatinine Clearance 267 mL/min (70-130); Calcium 8.6 mg/dL (7.8-10.44); Carbon Dioxide 25 mmol/L (22-29); Chloride 105 mmol/L (98-107); Estimated GFR-MDRD Greater than 90; Glucose 118 mg/dL (70-105); Magnesium 2.1 mg/dL (1.6-2.6); Phosphorus 2.4 mg/dL (2.3-4.7); Potassium 3.5 mmol/L (3.5-5.1); Sodium 136 mmol/L (136-145); Triglycerides 792 mg/dL (Less than 150)
[2019-05-25] MEDS: Famotidine 20 MG TAB PO SCH ×2 (09:54→20:19)
[2019-05-25] MEDS: Fenofibrate Nanocrystallized 145 MG TAB PO SCH (09:54)
[2019-05-25] MEDS: Heparin 5,000 UNITS/ML VIAL SC SCH ×3 (09:54→20:20)
--- NOTE | 2019-05-25 11:17 | PRG ---
DATE OF SERVICE: 05/25/2019 SUBJECTIVE: This morning, he is awake, alert, responsive, in no distress. No shortness of breath. OBJECTIVE: VITAL SIGNS: Temperature 97, pulse 79, respiratory rate 20, saturations 90%, blood pressure 150/80. CHEST: No wheezing or crackles. CARDIAC: Normal S1 and S2. No gallops. ABDOMEN: No masses. LABORATORY DATA: Triglyceride 792. IMPRESSION: Diabetes, pancreatitis, high triglycerides, alcohol abuse, probably sleep apnea. PLAN: Pulmonary/Critical Care will follow while in the MICU. Continue present diabetic care, insulin, supportive care, PT. Job ID: [id number]
[2019-05-25] MEDS: Ketorolac Tromethamine 30 MG/ML VIAL IVP PRN ×2 (13:09→20:29)
--- NOTE | 2019-05-25 16:23 | PDOC.PN ---
- Subjective Encounter Start Date: 05/25/19 Encounter Start Time: 07:20 Subjective: abdominal pain is better, no nausea -: is passing flatus -: tolerating liq diet - Objective Resuscitation Status - Order Detail: 05/23/19 09:57 Resuscitation Status Routine Resuscitation Status: FULL: Full Resuscitation MAR Reviewed: Yes Vital Signs & Weight: Vital Signs (12 hours) Temp Pulse Ox 05/25/19 14:55 97.5 F L 05/25/19 10:40 97.9 F 05/25/19 08:00 98 05/25/19 07:04 97.3 F L 05/25/19 04:35 97.0 F L Weight Weight 272 lb 11.2 oz Most Recent Monitor Data Heart Rate from ECG 83 NIBP 157/105 NIBP BP-Mean 122 Respiration from ECG 17 SpO2 97 I&O: 05/24/19 05/25/19 05/26/19 06:59 06:59 06:59 Intake Total 4320 2226 Output Total 875 3025 Balance 3445 -609 Result Diagrams: 05/24/19 06:14 05/25/19 07:41 Additional Labs: Accuchecks 05/25/19 05/25/19 05/25/19 14:00 11:51 09:54 POC Glucose 96 112 H 134 H 05/25/19 05/25/19 05/25/19 08:00 06:18 04:04 POC Glucose 113 H 121 H 120 H 05/25/19 05/25/19 05/25/19 02:28 01:30 00:05 POC Glucose 109 99 92 05/24/19 05/24/19 05/24/19 22:14 20:17 18:08 POC Glucose 109 116 H 100 05/24/19 16:06 POC Glucose 124 H Phys Exam - Physical Examination HEENT: PERRLA, moist MMs Neck: no JVD, supple Respiratory: no wheezing, no rales Cardiovascular: RRR, no significant murmur Gastrointestinal: soft, no distention, positive bowel sounds Musculoskeletal: no edema, pulses present Neurological: non-focal, moves all 4 limbs Psychiatric: normal affect, A&O x 3 Dx/Plan (1) Acute pancreatitis Code(s): K85.90 - ACUTE PANCREATITIS WITHOUT NECROSIS OR INFECTION, UNSP Status: Acute Comment: sec to alc use and hypertriglyceredemia (2) Hypertriglyceridemia Code(s): E78.1 - PURE HYPERGLYCERIDEMIA Status: Acute (3) Morbid obesity Code(s): E66.01 - MORBID (SEVERE) OBESITY DUE TO EXCESS CALORIES Status: Chronic (4) DM type 2 (diabetes mellitus, type 2) Status: Chronic Qualifiers: Diabetes mellitus skilled nursing insulin use: without terminal computer operator use Diabetes mellitus complication status: without complication Qualified Code(s): E11.9 - Type 2 diabetes mellitus without complications (5) KEON (obstructive sleep apnea) Code(s): G47.33 - OBSTRUCTIVE SLEEP APNEA (ADULT) (PEDIATRIC) Status: Suspected (6) Alcohol consumption binge drinking Code(s): F10.10 - ALCOHOL ABUSE, UNCOMPLICATED Status: Chronic - Plan triglyceride is down to 700, may dc insulin drip if ok with GI -: may adv diet per GI adv -: continue tricor, crestor, fish oil and iv fluids -: to ambulate as tolerated in room and hallway -: lovenox for dvt prophylaxis * . Review of Systems - Medications/Allergies Allergies/Adverse Reactions: Allergies Allergy/AdvReac Type Severity Reaction Status Date / Time No Known Drug Allergies Allergy Verified 05/23/19 10:39 Medications: Current Medications Acetaminophen (Tylenol) 650 mg PO Q4H PRN PRN Reason: Headache/Fever/Mild Pain (1-3) Hydrocodone Bitart/Acetaminophen ([place] 5/325) 1 tab PO Q4H PRN PRN Reason: Moderate Pain (4-6) Last Admin: 05/25/19 09:54 Dose: 1 tab Bisacodyl (Dulcolax) 10 mg [place] DAILYPRN PRN PRN Reason: Constipation Dextrose/Water (Dextrose 50%) 25 gm SLOW IVP PRN PRN PRN Reason: Hypoglycemia Famotidine (Pepcid) 20 mg PO BID [facility] Last Admin: 05/25/19 09:54 Dose: 20 mg Fenofibrate (Tricor) 145 mg PO DAILY [facility] Last Admin: 05/25/19 09:54 Dose: 145 mg Fish Oil (Fish Oil) 1,000 mg PO HS [facility] Last Admin: 05/24/19 20:56 Dose: 1,000 mg Glucagon (Glucagon) 1 mg IM PRN PRN PRN Reason: Hypoglycemia Guaifenesin/Dextromethorphan (Robitussin Dm) 15 ml PO Q4H PRN PRN Reason: Cough Heparin Sodium (Porcine) (Heparin) 5,000 units SC TID [facility] Last Admin: 05/25/19 15:18 Dose: 5,000 units Dextrose/Water (D5w) 1,000 mls @ 0 mls/hr IV .Q0M PRN PRN Reason: Hypoglycemia Insulin Human Regular 100 (units/ Sodium Chloride) 101 mls @ 5.05 mls/hr IVPB INF [facility]; Protocol Last Admin: 05/25/19 00:29 Dose: 101 mls Dextrose/Sodium Chloride (D5 0.9% Ns) 1,000 mls @ 150 mls/hr IV .Q6H40M [facility] Last Admin: 05/25/19 15:19 Dose: Not Given Sodium Chloride 154 meq/ (Dextrose/Water) 1,038.5 mls @ 125 mls/hr IV ASDIR PRN PRN Reason: .START IF D5NS >200ML/HR Ketorolac Tromethamine (Toradol) 30 mg IVP Q6H PRN PRN Reason: Severe Pain (7-10) Stop: 05/28/19 10:04 Last Admin: 05/25/19 13:09 Dose: 30 mg Morphine Sulfate (Morphine) 4 mg SLOW IVP Q4H PRN PRN Reason: Severe Pain (7-10) Ondansetron HCl (Zofran) 4 mg IVP Q6H PRN PRN Reason: Nausea/Vomiting Last Admin: 05/24/19 21:33 Dose: 4 mg Ropinirole HCl (Requip) 1 mg PO HS PRN PRN Reason: Restlessness Rosuvastatin Calcium (Crestor) 20 mg PO HS [facility] Last Admin: 05/24/19 20:56 Dose: 20 mg Senna/Docusate Sodium (Senokot S) 2 tab PO BID PRN PRN Reason: Constipation
[2019-05-25] MEDS: Rosuvastatin 20 MG TAB PO SCH (20:19)
[2019-05-25] MEDS: Fish Oil 1,000 MG CAP PO SCH (20:19)
[2019-05-26] MEDS: HYDROcodone/Acetaminophen 5/325 mg Tablet PO PRN ×5 (00:09→22:19)
[2019-05-26] MEDS: HUMULIN R 100 UNITS in Sodium Chloride 0.9% 100 ML IVPB SCH (00:47)
[2019-05-26 05:10] LABS: Phosphorus 2.8 mg/dL (2.3-4.7)
[2019-05-26 05:11] LABS: Anion Gap 9 mmol/L (10-20); BUN (Urea Nitrogen) 5 mg/dL (8.9-20.6); Calc. Creatinine Clearance 259 mL/min (70-130); Calcium 8.6 mg/dL (7.8-10.44); Carbon Dioxide 26 mmol/L (22-29); Chloride 105 mmol/L (98-107); Estimated GFR-MDRD Greater than 90; Glucose 92 mg/dL (70-105); Magnesium 1.9 mg/dL (1.6-2.6); Potassium 3.3 mmol/L (3.5-5.1); Sodium 137 mmol/L (136-145)
[2019-05-26] MEDS: Dextrose 5 % And 0.9 % NaCl 1,000 ML IV SCH (07:03)
[2019-05-26] MEDS: Fenofibrate Nanocrystallized 145 MG TAB PO SCH (09:27)
[2019-05-26] MEDS: Famotidine 20 MG TAB PO SCH ×2 (09:27→20:24)
[2019-05-26] MEDS: Heparin 5,000 UNITS/ML VIAL SC SCH ×3 (09:27→20:24)
[2019-05-26] MEDS: Sodium Chloride 0.9% 1,000 ML IV SCH (11:00)
--- NOTE | 2019-05-26 13:18 | PDOC.PN ---
- Subjective Encounter Start Date: 05/26/19 Encounter Start Time: 12:25 Subjective: no abd pain, is tolerating oral diet -: amb in room - Objective Resuscitation Status - Order Detail: 05/23/19 09:57 Resuscitation Status Routine Resuscitation Status: FULL: Full Resuscitation MAR Reviewed: Yes Vital Signs & Weight: Vital Signs (12 hours) Temp Pulse Resp BP BP Pulse Ox 05/26/19 11:06 98.4 F 89 20 145/98 H 100 05/26/19 07:44 97 05/26/19 07:30 97.2 F L 05/26/19 04:00 127/77 05/26/19 03:52 99.0 F Weight Weight 277 lb 5 oz Most Recent Monitor Data Heart Rate from ECG 89 NIBP 145/98 NIBP BP-Mean 113 Respiration from ECG 24 SpO2 100 I&O: 05/25/19 05/26/19 05/27/19 06:59 06:59 06:59 Intake Total 2226 4314.3 Output Total 3025 3375 Balance -799 939.3 Result Diagrams: 05/24/19 06:14 05/26/19 04:38 Additional Labs: Accuchecks 05/26/19 05/26/19 05/26/19 10:44 08:05 05:59 POC Glucose 114 H 101 100 05/26/19 05/26/19 05/26/19 04:09 02:07 00:01 POC Glucose 102 92 106 05/25/19 05/25/19 05/25/19 21:59 19:59 18:28 POC Glucose 98 110 150 H 05/25/19 05/25/19 16:19 14:00 POC Glucose 102 96 Phys Exam - Physical Examination HEENT: PERRLA, moist MMs Neck: no JVD, supple Respiratory: no wheezing, no rales Cardiovascular: RRR, no significant murmur Gastrointestinal: soft, non-tender, no distention, positive bowel sounds Musculoskeletal: no edema, pulses present Neurological: non-focal, moves all 4 limbs Psychiatric: normal affect, A&O x 3 Dx/Plan (1) Acute pancreatitis Code(s): K85.90 - ACUTE PANCREATITIS WITHOUT NECROSIS OR INFECTION, UNSP Status: Acute Comment: sec to alc use and hypertriglyceredemia (2) Hypertriglyceridemia Code(s): E78.1 - PURE HYPERGLYCERIDEMIA Status: Acute (3) Morbid obesity Code(s): E66.01 - MORBID (SEVERE) OBESITY DUE TO EXCESS CALORIES Status: Chronic (4) DM type 2 (diabetes mellitus, type 2) Status: Chronic Qualifiers: Diabetes mellitus termite control service representative insulin use: without termite control service representative use Diabetes mellitus complication status: without complication Qualified Code(s): E11.9 - Type 2 diabetes mellitus without complications (5) KEON (obstructive sleep apnea) Code(s): G47.33 - OBSTRUCTIVE SLEEP APNEA (ADULT) (PEDIATRIC) Status: Suspected (6) Alcohol consumption binge drinking Code(s): F10.10 - ALCOHOL ABUSE, UNCOMPLICATED Status: Chronic - Plan dc insulin drip, trig levels around 500 -: tx to med floor, continue tricor, fish oil, crestor, cozaar -: oral solid diet, home dm meds -: iv fluids, to ambulate in hallway -: dc plan in 24-36hrs * . Review of Systems - Medications/Allergies Allergies/Adverse Reactions: Allergies Allergy/AdvReac Type Severity Reaction Status Date / Time No Known Drug Allergies Allergy Verified 05/23/19 10:39 Medications: Current Medications Acetaminophen (Tylenol) 650 mg PO Q4H PRN PRN Reason: Headache/Fever/Mild Pain (1-3) Hydrocodone Bitart/Acetaminophen ([place] 5/325) 1 tab PO Q4H PRN PRN Reason: Moderate Pain (4-6) Last Admin: 05/26/19 11:03 Dose: 1 tab Bisacodyl (Dulcolax) 10 mg [place] DAILYPRN PRN PRN Reason: Constipation Dextrose/Water (Dextrose 50%) 25 gm SLOW IVP PRN PRN PRN Reason: Hypoglycemia Famotidine (Pepcid) 20 mg PO BID [facility] Last Admin: 05/26/19 09:27 Dose: 20 mg Fenofibrate (Tricor) 145 mg PO DAILY [facility] Last Admin: 05/26/19 09:27 Dose: 145 mg Fish Oil (Fish Oil) 1,000 mg PO HS [facility] Last Admin: 05/25/19 20:19 Dose: 1,000 mg Glucagon (Glucagon) 1 mg IM PRN PRN PRN Reason: Hypoglycemia Guaifenesin/Dextromethorphan (Robitussin Dm) 15 ml PO Q4H PRN PRN Reason: Cough Heparin Sodium (Porcine) (Heparin) 5,000 units SC TID [facility] Last Admin: 05/26/19 09:27 Dose: 5,000 units Dextrose/Water (D5w) 1,000 mls @ 0 mls/hr IV .Q0M PRN PRN Reason: Hypoglycemia Sodium Chloride (Normal Saline 0.9%) 1,000 mls @ 75 mls/hr IV .[id number] [facility] Last Admin: 05/26/19 11:00 Dose: 1,000 mls Losartan Potassium (Cozaar) 25 mg PO DAILY [facility] Metformin HCl (Glucophage) 1,000 mg PO BID[facility] Morphine Sulfate (Morphine) 4 mg SLOW IVP Q4H PRN PRN Reason: Severe Pain (7-10) Ondansetron HCl (Zofran) 4 mg IVP Q6H PRN PRN Reason: Nausea/Vomiting Last Admin: 05/24/19 21:33 Dose: 4 mg Ropinirole HCl (Requip) 1 mg PO HS PRN PRN Reason: Restlessness Rosuvastatin Calcium (Crestor) 20 mg PO HS [facility] Last Admin: 05/25/19 20:19 Dose: 20 mg Senna/Docusate Sodium (Senokot S) 2 tab PO BID PRN PRN Reason: Constipation Sodium Chloride (Flush - Normal Saline) 10 ml IVF Q12HR [facility] Sodium Chloride (Flush - Normal Saline) 10 ml IVF PRN PRN PRN Reason: Saline Flush
--- NOTE | 2019-05-26 16:10 | PRG ---
DATE OF SERVICE: 05/26/2019 REASON FOR CONSULTATION: Acute uncomplicated pancreatitis. SUBJECTIVE: Yesterday, the patient had almost complete resolution of his abdominal pain and had been doing well up until today when he ingested a hamburger that was brought up from [facility] and is now experiencing mild abdominal discomfort in the midepigastric region. Otherwise, he is doing well with no complaints of nausea, vomiting, fevers, chills, hematemesis, melena, or hematochezia. OBJECTIVE: VITAL SIGNS: Temperature 98.4, pulse 89, blood pressure 145/98, respiratory rate 20, and saturating 100% on room air. GENERAL: The patient was lying in bed, in no acute distress. Alert and oriented x4. CARDIOVASCULAR: Regular rate and rhythm. RESPIRATORY: Clear to auscultation bilaterally. ABDOMEN: Normoactive bowel sounds. Soft, nondistended, and mild tenderness to palpation in the midepigastric region. EXTREMITIES: No cyanosis, clubbing, or edema. LABORATORY DATA: Chemistry with a sodium of 137, potassium 3.3, chloride 105, CO2 of 26, BUN 5, creatinine 0.69, and glucose 92. Triglycerides 578. IMAGING DATA: No current GI imaging is available for review. ASSESSMENT AND PLAN: The patient is a 38-year-old male with past medical history of hypertension and diabetes, presenting with acute onset of uncomplicated pancreatitis. Acute uncomplicated pancreatitis. The patient initially presented with increased midepigastric pain that had been present for approximately 2 days prior to admission. On admission, he had imaging consistent with mild inflammatory changes around the pancreas in addition to elevated lipase consistent with acute pancreatitis. He did not have any fluid collections and no evidence of necrosis that would potentially lead toward the diagnosis of complicated pancreatitis. However, the etiology of his pancreatitis was a little unclear given his extensive alcohol consumption history in addition to having triglycerides of over 2500 on admission. He was subsequently transferred to the ICU and placed on insulin drip and has been responding well to IV fluids and insulin drip for maintenance of his triglyceride levels and decreased levels at this time. Currently, he is doing well with almost complete resolution of his abdominal pain except for when he ate a higher fat content meals earlier today. Based on his response to therapy, IV fluids I think could be discontinued with continuation of a low-fat diet (please stress low fat). We would continue with anticholesterol medications for hypertriglyceridemia, which could potentially lead to further bouts of pancreatitis. Pain control per primary team. Given resolution of his abdominal pain and triglycerides nearing less than 500, we have no new additional recommendations. We will sign off at this time. Please call with any additional questions. Job ID: [id number]
[2019-05-26] MEDS: metFORMIN 500 MG TAB PO SCH (17:26)
--- NOTE | 2019-05-26 19:51 | PRG ---
DATE OF SERVICE: 05/26/2019 SUBJECTIVE: Mr. Quijano is a pleasant gentleman whose events have been reviewed. He is reporting minimal abdominal discomfort when I saw him on the intermediate care unit. OBJECTIVE: VITAL SIGNS: He is afebrile. Blood pressure 152/99, , oximetry is 95% on room air. LUNGS: Clear. HEART: Regular rate and rhythm. ABDOMEN: As mentioned, abdomen is minimally tender in his epigastrium. EXTREMITIES: Without asymmetry or edema. LABORATORY DATA: White count 6.2, hemoglobin 12.5, platelets 177 two days ago. His glucoses have been for the most part less than 132 today. IMPRESSION AND PLAN: Pancreatitis secondary to lipid disorder. He had a cheeseburger for lunch today, and the nurses have been instructed to keep him on a low-fat diet. I had a 20-minute discussion with him about diet, weight loss, diabetes, and potential future complications. My opinion, he is stable to transfer out of the intermediate care unit. We will sign off. Job ID: [id number]
[2019-05-26] MEDS: Rosuvastatin 20 MG TAB PO SCH (20:24)
[2019-05-26] MEDS: Fish Oil 1,000 MG CAP PO SCH (20:24)
[2019-05-26] MEDS: Acetaminophen 325 MG TAB PO PRN (20:31)
[2019-05-26] MEDS ORDERED: Non-Formulary Item 1 EACH (Metformin Hcl [Metformin Hcl] 1,000 MG) PO SCH (21:00)
[2019-05-27] MEDS: Sodium Chloride 0.9% 1,000 ML IV SCH (01:29)
[2019-05-27 05:42] LABS: Anion Gap 8 mmol/L (10-20); BUN (Urea Nitrogen) 8 mg/dL (8.9-20.6); Calc. Creatinine Clearance 250 mL/min (70-130); Calcium 9.2 mg/dL (7.8-10.44); Carbon Dioxide 28 mmol/L (22-29); Chloride 104 mmol/L (98-107); Estimated GFR-MDRD Greater than 90; Glucose 132 mg/dL (70-105); Magnesium 1.6 mg/dL (1.6-2.6); Potassium 3.8 mmol/L (3.5-5.1); Sodium 136 mmol/L (136-145)
[2019-05-27 05:56] LABS: Phosphorus 2.2 mg/dL (2.3-4.7)
[2019-05-27 07:13] VITALS: TEMP 98
[2019-05-27] MEDS ORDERED: Losartan 25 MG TAB PO SCH (09:00)
[2019-05-27] MEDS: Heparin 5,000 UNITS/ML VIAL SC SCH (09:02)
[2019-05-27] MEDS: metFORMIN 500 MG TAB PO SCH (09:02)
[2019-05-27] MEDS: Fenofibrate Nanocrystallized 145 MG TAB PO SCH (09:02)
[2019-05-27] MEDS: Famotidine 20 MG TAB PO SCH (09:03)
[2019-05-27] MEDS: Acetaminophen 325 MG TAB PO PRN (09:09)
--- NOTE | 2019-05-27 11:27 | PDOC.PN ---
- Subjective Encounter Start Date: 05/27/19 Encounter Start Time: 08:45 Subjective: no abd pain after having dinner last night -: no nausea, is passing flatus - Objective Resuscitation Status - Order Detail: 05/23/19 09:57 Resuscitation Status Routine Resuscitation Status: FULL: Full Resuscitation MAR Reviewed: Yes Vital Signs & Weight: Vital Signs (12 hours) Temp Pulse Resp BP BP BP Pulse Ox 05/27/19 07:10 98 F 69 17 126/87 96 05/27/19 04:00 98.0 F 74 18 125/87 125/87 95 05/27/19 00:00 98.2 F 76 18 136/89 136/89 96 Weight Weight 271 lb 3.403 oz Most Recent Monitor Data Heart Rate from ECG 89 NIBP 145/98 NIBP BP-Mean 113 Respiration from ECG 24 SpO2 100 I&O: 05/26/19 05/27/19 05/28/19 06:59 06:59 06:59 Intake Total 4314.3 2413.8 Output Total 3375 800 Balance 939.3 1613.8 Result Diagrams: 05/24/19 06:14 05/27/19 04:53 Additional Labs: Accuchecks 05/27/19 05/26/19 05/26/19 04:40 19:49 16:15 POC Glucose 124 H 143 H 132 H Phys Exam - Physical Examination HEENT: PERRLA, moist MMs Neck: no JVD, supple Respiratory: no wheezing, no rales Cardiovascular: RRR, no significant murmur Gastrointestinal: soft, non-tender, positive bowel sounds Musculoskeletal: no edema, pulses present Neurological: non-focal, moves all 4 limbs Psychiatric: normal affect, A&O x 3 Dx/Plan (1) Acute pancreatitis Code(s): K85.90 - ACUTE PANCREATITIS WITHOUT NECROSIS OR INFECTION, UNSP Status: Acute Comment: sec to alc use and hypertriglyceredemia (2) Hypertriglyceridemia Code(s): E78.1 - PURE HYPERGLYCERIDEMIA Status: Acute (3) Morbid obesity Code(s): E66.01 - MORBID (SEVERE) OBESITY DUE TO EXCESS CALORIES Status: Chronic (4) DM type 2 (diabetes mellitus, type 2) Status: Chronic Qualifiers: Diabetes mellitus alf insulin use: without alf use Diabetes mellitus complication status: without complication Qualified Code(s): E11.9 - Type 2 diabetes mellitus without complications (5) KEON (obstructive sleep apnea) Code(s): G47.33 - OBSTRUCTIVE SLEEP APNEA (ADULT) (PEDIATRIC) Status: Suspected (6) Alcohol consumption binge drinking Code(s): F10.10 - ALCOHOL ABUSE, UNCOMPLICATED Status: Chronic - Plan he was told yesterday by to stay on full liq low fat diet x 2 week -: -per patient, GI has signed off. -: DC pt home, d/w pt and at bedside -: to continue crestor, tricor, fish oil and prior home meds for dm -: hemostable, please provide low fat, 1800 ada diet pt information * .
[2019-05-27 12:14] VITALS: BP 145/89
--- NOTE | 2019-05-27 22:10 | EKG ---
Test Reason : Blood Pressure : / mmHG Vent. Rate : 116 BPM Atrial Rate : 116 BPM P-R Int : 142 ms QRS Dur : 076 ms QT Int : 328 ms P-R-T Axes : 039 048 022 degrees QTc Int : 455 ms Sinus tachycardia Anterior infarct , age undetermined Abnormal ECG Confirmed by CRYSTAL ROCA ([id number]), acquisition editor CAROLE SILVA ([id number]) on 05/27/2019 10:09:13 PM Referred By: Confirmed By:CRYSTAL ROCA
--- NOTE | 2019-05-28 10:47 | DIS ---
DATE OF ADMISSION: 05/23/2019 DATE OF DISCHARGE: 05/27/2019 DISCHARGE DISPOSITION: Home. PRIMARY DISCHARGE DIAGNOSES: 1. Acute pancreatitis. 2. Severe hypertriglyceridemia on admission, resolving. 3. Alcohol binge drinking on the weekends. 4. Morbid obesity. 5. Diabetes mellitus type 2. 6. Suspected obstructive sleep apnea. PROCEDURES DONE DURING HOSPITALIZATION: The patient initially had a CT abdomen and pelvis done, which showed mild stranding/edema in the pancreaticoduodenal region , left renal suspicious mass, bilateral nonobstructing nephrolithiasis, left hydroureter, and caliectasis. 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 Scarring was likely sequelae of chronic obstruction. CT angio chest with and without contrast done showed no acute findings. No evidence of PE was seen. Hepatomegaly with marked fatty change was seen. LABORATORY DATA: H and H 12 and 34, platelet count 177. Triglycerides was 2512 on the 2nd with 578 on the 5th. Had a lipase of 229 on the day of admission. AST 38, ALT 80, alkaline phosphatase 107, total bilirubin 0.5, all these liver numbers were on admission. INPATIENT CONSULTS: Dr. Mando Vega for Gastroenterology, Dr. Donovan for Pulmonary Critical Care. DISCHARGE MEDICATIONS: 1. Metformin 1000 mg twice daily. 2. Tricor 145 mg p.o. daily. 3. Fish oil 1000 mg p.o. at bedtime. 4. Crestor 20 mg p.o. at bedtime. 5. Ultram p.r.n. for pain. 6. Ropinirole 1 mg p.o. at bedtime p.r.n. 7. Protonix 40 mg daily. 8. Cozaar 25 mg twice daily. 9. Glyburide 5 mg daily. ALLERGIES: NO KNOWN DRUG ALLERGIES. DISCHARGE PLAN: The patient to follow up with Dr. Mando Vega in 2 weeks and primary care physician in 1 week. He also needs to follow up with Dr. Donovan for possible sleep studies and Dr. Wade on 06/13/2019 at 1:30 p.m. to further evaluate the renal mass. BRIEF COURSE DURING HOSPITALIZATION: The patient initially came in with complaints of left upper quadrant pain, which was radiating up into his chest. In view of this history, the patient has had both CT chest with contrast and CT abdomen done. CT abdomen revealed pancreatitis. His lipase was elevated and triglycerides were more than 2500. The patient admitted to binge drinking with drinking more than 24 beer cans on each day of the weekends. He was admitted to ICU for insulin protocol to bring his triglycerides down. He has responded well to insulin protocol. He was evaluated by Dr. Mando Vega for Gastroenterology and Dr. Donovan for Pulmonary Critical Care. Prior to discharge, he is tolerating full liquid diet. His triglycerides have come down to around 500. He is on Crestor, Lipitor, and fish oil for dyslipidemia. His BMI is 42 and has been counseled to lose weight and follow a strict low fat heart healthy 1800 kilocalorie diet. Dietitian consultation was requested as well. The patient incidentally was found to have a left renal suspected mass and he will follow up with Dr. Wade for further outpatient workup. He has had known history of prior lithotripsy when he was 20 years of age and likely has had some scarring and will have further workup and studies towards the same once his pancreatitis completely resolves. He has scheduled appointment with Dr. Wade on the of this month at 1:30 p.m. and is counseled to follow up with him. The patient needs to follow up with Dr. Mando Vega in 1 to 2 weeks. He may advance his diet per GI advice. Please see a [id number] documentation for the day of discharge on [employer]. Job ID: [id number] MTDD
== END 2019-05-27 14:09 | disposition home or self-care (01) | DRG 439 ==
LOC: ERS 21:12 → ERHOLD 05-23 01:07 → OBSVTOIN 05-23 01:07 → 2SW 05-23 08:24 → CCU 05-23 17:39 → IMCU/EMU 05-24 17:23 → T4-B 05-26 15:54
PROVIDERS: ADMIT Internal Medicine; ATTEND Internal Medicine
DX: K85.20 Alcohol induced acute pancreatitis without necrosis or infection (principal); Z68.41 Body mass index [BMI] 40.0-44.9, adult; N13.4 Hydroureter; F10.188 Alcohol abuse with other alcohol-induced disorder; J45.909 Unspecified asthma, uncomplicated; E66.01 Morbid (severe) obesity due to excess calories; N20.0 Calculus of kidney; I10 Essential (primary) hypertension; E78.1 Pure hyperglyceridemia; E11.9 Type 2 diabetes mellitus without complications; G47.33 Obstructive sleep apnea (adult) (pediatric); Z79.84 Long term (current) use of oral hypoglycemic drugs; Z90.49 Acquired absence of other specified parts of digestive tract; Z79.899 Other long term (current) drug therapy
CPT/HCPCS: 36415; 36416; 71045; 71275; 74177; 80048; 80053; 81015; 82550; 83690; 83735; 83880; 84100; 84478; 84484; 85025; 85379; 93005; 96361; 96374; 96375; 96376; J1644; J1815; J1885; J2270; J2405; J3490; J7042; Q9966

== ENCOUNTER 2022-12-12 20:50 | Emergency (ER) | payer BC | END 2022-12-13 01:21 | disposition left against medical advice (07) | LOC: ERS 20:50 | DX: Z53.21 Procedure and treatment not carried out due to patient leaving prior to being seen by health care provider (principal) ==

== ENCOUNTER 2023-07-29 23:29 | Emergency (ER) | payer BC ==
[2023-07-30 00:34] LABS: Troponin I Less than 0.010 ng/mL (< 0.028)
[2023-07-30 01:01] LABS: #Eosinphils 0.3 thou/uL (0.0-0.7); #Monocytes 0.5 thou/uL (0.11-0.59); #Neutrophils 2.1 thou/uL (1.40-6.50); %Basophils 0.7 % (0.0-1.0); %Eosinophils 5.8 % (0.0-10.0); %Lymphocytes 49.7 % (21.0-51.0); %Neutrophils 35.5 % (42.0-75.0); Hematocrit 42.9 % (42.0-52.0); Hemoglobin 15.1 g/dL (14.0-18.0); Mean Corpuscular HGB CONC 35.2 g/dL (32.0-36.0); Mean Corpuscular Hemoglobin 32.9 pg (27.0-31.0); Mean Corpuscular Volume 93.5 fl (78.0-98.0); Mean Platelet Volume 11.7 fL (7.4-10.4); Platelet Count 253 10x3/uL (130-400); RBC Distribution Width 12.1 % (11.5-14.5); Red Blood Cell (RBC) Count 4.59 mill/uL (4.70-6.10); White Blood Cell (WBC) Count 5.9 10x3/uL (4.8-10.8)
== END 2023-07-30 01:47 | disposition left against medical advice (07) ==
LOC: ERS 23:29
DX: Z53.21 Procedure and treatment not carried out due to patient leaving prior to being seen by health care provider (principal)
CPT/HCPCS: 36415; 71045; 80053; 83690; 84484; 85025; 93005

== ENCOUNTER 2023-08-06 23:13 | Emergency (ER) | payer BC ==
[2023-08-07] MEDS ORDERED: Lidocaine 1% w/Epinephrine 1:100K 20 ML VIAL ONE (01:30)
== END 2023-08-07 02:17 | disposition home or self-care (01) ==
LOC: ERS 23:13
DX: L02.213 Cutaneous abscess of chest wall (principal); E11.9 Type 2 diabetes mellitus without complications; E78.2 Mixed hyperlipidemia; I10 Essential (primary) hypertension; Z87.891 Personal history of nicotine dependence
CPT/HCPCS: 10060

== ENCOUNTER 2024-11-07 18:25 | Emergency (ER) | payer BC ==
[~2024-11-07 18:25] MED LIST changes: -ISOVUE-370 76%-LOCM 1 ML ONE; +Iopamidol-370 76% 500 ML MDV (1 ML CHARGE) ONE
[2024-11-07 20:00] LABS: #Basophils 0.03 10x3/uL (0.0-0.2); %Basophils 0.5 % (0.0-1.0); %Eosinophils 2.9 % (0.0-10.0); %Lymphocytes 50.9 % (21.0-51.0); %Neutrophils 37.5 % (42.0-75.0); Hematocrit 42.6 % (42.0-52.0); Hemoglobin 15.6 g/dL (14.0-18.0); Mean Corpuscular HGB CONC 36.6 g/dL (32.0-36.0); Mean Corpuscular Hemoglobin 32.5 pg (27.0-31.0); Mean Corpuscular Volume 88.8 fL (78.0-98.0); Mean Platelet Volume 9.4 fL (7.4-10.4); Platelet Count 248 10x3/uL (130-400); RBC Distribution Width 11.4 % (11.5-14.5)
[2024-11-07 20:17] LABS: ALT (SGPT) 50 U/L (8-55); AST (SGOT) 33 U/L (5-34); Alkaline Phosphatase 137 U/L (40-110); Anion Gap 16 mmol/L (10-20); BUN (Urea Nitrogen) 20 mg/dL (8.9-20.6); Bilirubin, Total 0.4 mg/dL (0.2-1.2); Calc. Creatinine Clearance 0 mL/min (70-130); Calcium 9.1 mg/dL (7.8-10.44); Carbon Dioxide 20 mmol/L (22-29); Chloride 102 mmol/L (98-107); Estimated GFR 117; Globulin 3.7 g/dL (2.4-3.5); Glucose 164 mg/dL (70-105); Lipase 27 U/L (8-78); Potassium 3.9 mmol/L (3.5-5.1); Protein, Total 7.7 g/dL (6.0-8.3); Sodium 134 mmol/L (136-145)
[2024-11-07 20:22] LABS: Bacteria/HPF None Seen HPF (None Seen); Bilirubin Negative (Negative); Blood, Urine Negative (Negative); CAUTI Indications for Culture Pelvic or flank pain; Clarity Clear (Clear); Glucose, Urine (Dipstick) 30 mg/dL (Negative); Ketone, Urine Negative (Negative); Leukocyte Negative Leu/uL (Negative); Nitrite Negative (Negative); Protein, Urine (Dipstick) Negative (Neg-Trace); RBC/HPF 0-3 HPF (0-3); Specific Gravity, Urine 1.019 (1.002-1.036); Squamous Epithelial 0-3 HPF (0-3); Urobilinogen Normal mg/dL (Less than 2); WBC/HPF 0-3 HPF (0-3)
[2024-11-07 20:24] LABS: Urine Culture Reflex No No
[2024-11-07] MEDS ORDERED: Pantoprazole 40 MG VIAL ONE (22:38)
[2024-11-07] MEDS ORDERED: Ondansetron PF 4 MG/2 ML Vial ONE (22:38)
[2024-11-07] MEDS ORDERED: Morphine 4 MG/ML VIAL ONE ×2 (22:38→23:28)
[2024-11-07 22:51] LABS: Troponin I Less than 0.010 ng/mL (< 0.028)
[2024-11-07] MEDS ORDERED: Ketorolac Tromethamine 30 MG (1 mL) VIAL ONE (23:29)
== END 2024-11-08 00:35 | disposition home or self-care (01) ==
LOC: ERS 18:25
DX: R10.84 Generalized abdominal pain (principal); I10 Essential (primary) hypertension; E11.9 Type 2 diabetes mellitus without complications; E78.5 Hyperlipidemia, unspecified; Z79.84 Long term (current) use of oral hypoglycemic drugs; Z79.4 Long term (current) use of insulin; Z87.891 Personal history of nicotine dependence; Z79.899 Other long term (current) drug therapy
CPT/HCPCS: 36415; 74177; 80053; 81001; 83605; 83690; 84484; 85025; 93005; 96374; 96375; 96376; J1885; J2272; J2405; J2470; Q9967

== ENCOUNTER 2024-11-20 21:56 | Emergency (ER) | payer BC ==
[2024-11-20 22:52] LABS: Actual Bicarbonate (HCO3v) 25.1 mEq/L (22-28); Base Excess 0.6 mEq/L (-2.0 to +3.0); Calcium, Ionized (venous) 1.16 mmol/L (1.16-1.32); Chloride (VBG) 105 mmol/L (98-106); Hematocrit-VBG 41 % (42.0-52.0); Potassium (VBG) 3.99 mmol/L (3.70-5.30); Sodium 138 mmol/L (133-146); pH (venous) 7.415 (7.32-7.43)
[2024-11-20] MEDS ORDERED: HYDROmorphone 0.5 MG/0.5 ML SYRINGE ONE (22:58)
[2024-11-20] MEDS ORDERED: Promethazine HCl 25 MG/ML VIAL ONE (23:05)
[2024-11-20 23:28] LABS: Magnesium 1.5 mg/dL (1.6-2.6)
[2024-11-20 23:35] LABS: Troponin I Less than 0.010 ng/mL (< 0.028)
[2024-11-21 00:50] LABS: #Basophils 0.04 10x3/uL (0.0-0.2); %Basophils 0.5 % (0.0-1.0); %Eosinophils 3.1 % (0.0-10.0); %Lymphocytes 28.3 % (21.0-51.0); %Neutrophils 51.3 % (42.0-75.0); Hematocrit 36.2 % (42.0-52.0); Mean Platelet Volume 10.2 fL (7.4-10.4); Platelet Count 266 10x3/uL (130-400); RBC Distribution Width 11.7 % (11.5-14.5); Red Blood Cell (RBC) Count 4.18 mill/uL (4.70-6.10)
[2024-11-21 01:18] LABS: Bacteria/HPF None Seen HPF (None Seen); Bilirubin Negative (Negative); Blood, Urine Negative (Negative); CAUTI Indications for Culture Alt mental st,lethar; Clarity Clear (Clear); Glucose, Urine (Dipstick) >=1000 mg/dL (Negative); Ketone, Urine Negative (Negative); Leukocyte Negative Leu/uL (Negative); Nitrite Negative (Negative); Protein, Urine (Dipstick) 50 mg/dL (Neg-Trace); RBC/HPF 0-3 HPF (0-3); Specific Gravity, Urine 1.032 (1.002-1.036); Squamous Epithelial None Seen HPF (0-3); WBC/HPF 0-3 HPF (0-3); pH, Urine 5.5 (5.0-9.0)
[2024-11-21 01:23] LABS: Urine Culture Reflex No No
[2024-11-21 01:24] LABS: Albumin 3.4 g/dL (3.5-5.0); Alkaline Phosphatase 161 U/L (40-110); Anion Gap 15 mmol/L (10-20); BUN (Urea Nitrogen) 17 mg/dL (8.9-20.6); Bilirubin, Total 0.4 mg/dL (0.2-1.2); Calc. Creatinine Clearance 0 mL/min (70-130); Carbon Dioxide 18 mmol/L (22-29); Chloride 106 mmol/L (98-107); Estimated GFR 116; Globulin 5.9 g/dL (2.4-3.5); Glucose 230 mg/dL (70-105); Lipase 56 U/L (8-78); Potassium 3.9 mmol/L (3.5-5.1); Protein, Total 9.3 g/dL (6.0-8.3); Sodium 135 mmol/L (136-145)
[2024-11-21 01:31] LABS: ALT (SGPT) 59 U/L (8-55)
[2024-11-21 02:26] LABS: AST (SGOT) 42 U/L (5-34)
[2024-11-21 02:38] LABS: Hematocrit 35.4 % (42.0-52.0); Hemoglobin 12.5 g/dL (14.0-18.0); Mean Corpuscular HGB CONC 35.3 g/dL (32.0-36.0); Mean Corpuscular Hemoglobin 30.6 pg (27.0-31.0); Mean Platelet Volume 9.7 fL (7.4-10.4); Platelet Count 246 10x3/uL (130-400); RBC Distribution Width 11.7 % (11.5-14.5); Red Blood Cell (RBC) Count 4.08 mill/uL (4.70-6.10)
[2024-11-21 03:02] LABS: Band 4 % (5-11); Eosinophils 2 % (0-10); Lymphocytes 29 % (21-51); Metamyelocyte 1 % (0-0); Monocytes 3 % (0-10); Neutrophil 61 % (42-75); Platelet Adequacy Comment Platelets Normal; Polychromasia SLIGHT = 2-3 cells HPF (0-2); Reactive Lymphocytes 1 % (0-10)
[2024-11-21 03:05] LABS: #Basophils 0.04 10x3/uL (0.0-0.2); %Basophils 0.4 % (0.0-1.0); %Eosinophils 2.2 % (0.0-10.0); %Lymphocytes 19.3 % (21.0-51.0); %Monocytes 13.6 % (0.0-10.0); %Neutrophils 64.5 % (42.0-75.0)
[2024-11-21 03:13] LABS: ALT (SGPT) 62 U/L (8-55); AST (SGOT) 42 U/L (5-34); Albumin 3.4 g/dL (3.5-5.0); Alkaline Phosphatase 152 U/L (40-110); Anion Gap 20 mmol/L (10-20); BUN (Urea Nitrogen) 17 mg/dL (8.9-20.6); Bilirubin, Total 0.4 mg/dL (0.2-1.2); Calc. Creatinine Clearance 0 mL/min (70-130); Calcium 8.7 mg/dL (7.8-10.44); Carbon Dioxide 14 mmol/L (22-29); Chloride 106 mmol/L (98-107); Estimated GFR 112; Globulin 4.4 g/dL (2.4-3.5); Glucose 254 mg/dL (70-105); Lipase 60 U/L (8-78); Magnesium 1.5 mg/dL (1.6-2.6); Protein, Total 7.8 g/dL (6.0-8.3); Sodium 136 mmol/L (136-145)
[2024-11-21] MEDS ORDERED: Lidocaine Viscous Sol 2% 15 ml UD Cup ONE (03:56)
[2024-11-21] MEDS ORDERED: HYDROcodone/Acetaminophen 5/325 mg Tablet ONE (03:56)
[2024-11-21] MEDS ORDERED: Ketorolac Tromethamine 30 MG (1 mL) VIAL ONE (03:56)
[2024-11-21] MEDS ORDERED: Milk Of Magnesia 30 ML UDCUP ONE (03:56)
== END 2024-11-21 05:27 | disposition home or self-care (01) ==
LOC: ERS 21:56
DX: E78.1 Pure hyperglyceridemia (principal); R10.12 Left upper quadrant pain; I10 Essential (primary) hypertension; E11.9 Type 2 diabetes mellitus without complications
CPT/HCPCS: 36415; 71045; 76705; 80053; 81001; 82010; 82805; 83605; 83615; 83690; 83735; 84478; 84484; 85025; 93005; 94760; 96361; 96365; 96375; J1171; J1885; J2550; J3475

== ENCOUNTER 2025-08-26 22:50 | Emergency (ER) | payer BC ==
[2025-08-27] MEDS ORDERED: Ondansetron PF 4 MG/2 ML Vial ONE (00:15)
[2025-08-27 00:23] LABS: Bacteria/HPF None Seen HPF (None Seen); CAUTI Indications for Culture Pelvic or flank pain; Glucose, Urine (Dipstick) Greater than 1000 mg/dL (Negative); Leukocyte Negative Leu/uL (Negative); Protein, Urine (Dipstick) Negative (Neg-Trace); RBC/HPF 0-3 HPF (0-3); Specific Gravity, Urine 1.025 (1.002-1.036); WBC/HPF 0-3 HPF (0-3)
[2025-08-27 00:24] LABS: Urine Culture Reflex No No
[2025-08-27 00:32] LABS: #Basophils 0.03 10x3/uL (0.0-0.2); #Eosinophils 0.09 10x3/uL (0.0-0.7); #Monocytes 0.54 10x3/uL (0.11-0.59); #Neutrophils 1.85 10x3/uL (1.40-6.50); %Basophils 0.7 % (0.0-1.0); %Eosinophils 2.0 % (0.0-10.0); %Lymphocytes 45.3 % (21.0-51.0); %Monocytes 11.7 % (0.0-10.0); %Neutrophils 40.1 % (42.0-75.0); Hematocrit 43.9 % (42.0-52.0); Hemoglobin 15.0 g/dL (14.0-18.0); Mean Corpuscular Hemoglobin 31.8 pg (27.0-31.0); Mean Corpuscular Volume 93.0 fL (78.0-98.0); Platelet Count 208 10x3/uL (130-400); Red Blood Cell (RBC) Count 4.72 mill/uL (4.70-6.10); White Blood Cell (WBC) Count 4.61 10x3/uL (4.8-10.8)
[2025-08-27 00:38] LABS: Actual Bicarbonate (HCO3v) 23.8 mEq/L (22-28); Base Excess -0.5 mEq/L (-2.0 to +3.0); Calcium, Ionized (venous) 1.17 mmol/L (1.16-1.32); Chloride (VBG) 102 mmol/L (98-106); Hematocrit-VBG 44 % (42.0-52.0); Hemoglobin (Hb) 15.0 g/dL (13.2-17.3); Potassium (VBG) 4.65 mmol/L (3.70-5.30); Sodium 137 mmol/L (133-146)
[2025-08-27 00:46] LABS: ALT (SGPT) 51 U/L (Less than 45); AST (SGOT) 39 U/L (11-34); Albumin 4.0 g/dL (3.1-4.5); Alkaline Phosphatase 181 U/L (40-110); Anion Gap 15 mmol/L (10-20); BUN (Urea Nitrogen) 18 mg/dL (8.9-20.6); Bilirubin, Total 0.3 mg/dL (0.3-1.2); Calc. Creatinine Clearance 0 mL/min (70-130); Calcium 9.3 mg/dL (7.8-10.44); Carbon Dioxide 21 mmol/L (22-29); Chloride 104 mmol/L (98-107); Globulin 3.6 g/dL (2.4-3.5); Glucose 390 mg/dL (70-105); Lipase 54 U/L (8-78); Magnesium 1.9 mg/dL (1.6-2.6); Potassium 4.9 mmol/L (3.5-5.1); Sodium 135 mmol/L (136-145)
[2025-08-27 01:40] LABS: Osmolality, Serum 306 mOsm/kg (275-295)
== END 2025-08-27 00:31 | disposition home or self-care (01) ==
LOC: ERS 22:50
DX: R10.84 Generalized abdominal pain (principal); E11.65 Type 2 diabetes mellitus with hyperglycemia; I10 Essential (primary) hypertension; E78.2 Mixed hyperlipidemia; Z79.84 Long term (current) use of oral hypoglycemic drugs; Z79.4 Long term (current) use of insulin; Z79.899 Other long term (current) drug therapy
CPT/HCPCS: 36416; 74177; 80053; 81001; 82010; 82805; 83690; 83735; 83930; 84478; 84484; 85025; 93005; J1815